=== PATIENT | female | born 1960 | race Hispanic/Latino ===

== ENCOUNTER 2017-09-20 05:58 | Observation (INO) | payer OTHER, MEDICARE ==
[2017-09-19 10:42] VITALS: BP 119/53
[2017-09-19 11:07] LABS: BASOPHILS % (AUTO) 0.6 % (0.0-5.0); EOSINOPHILS % (AUTO) 4.4 % (0.0-8.0); HEMATOCRIT 40.4 % (36-48); LYMPHOCYTES % (AUTO) 27.5 % (21.0-51.0); MEAN CORPUSCULAR HEMOGLOBIN 30.9 pg (27.0-33.0); MEAN CORPUSCULAR HGB CONC 33.7 g/dL (32.0-36.0); MEAN CORPUSCULAR VOLUME 91.8 fL (79-99); MONOCYTES % (AUTO) 7.7 % (3.0-13.0); NEUTROPHILS % (AUTO) 59.8 % (40.0-77.0); PLATELET COUNT (AUTO) 120 K/uL (130-400); RED CELL DISTRIBUTION WIDTH 13.6 % (11.0-15.5); WHITE BLOOD COUNT (AUTO) 7.3 K/uL (4.8-10.8)
[2017-09-19 11:30] LABS: CREATININE 0.6 mg/dL (0.5-1.5)
[2017-09-19 11:33] LABS: INR 0.95 (0.85-1.15); PARTIAL THROMBOPLASTIN TIME 30.5 SEC (26.3-35.5)
[2017-09-19 12:48] VITALS: BP 126/80
[~2017-09-20] VITALS: Ht 148.6 cm; Wt 80.6 kg
[2017-09-20] VITALS (12 sets, daily range): BP systolic 103–125; BP diastolic 56–72
[~2017-09-20 05:58] MED LIST: ACET1TAB25 PO; AMIT10TA6 PO; ATOR10TA69 PO; OXCA150T17 PO; metoprolol PO
[2017-09-20] MEDS ORDERED: SODIUM CHLORIDE 0.9% 1000ML 1,000 ML IV ONE (07:23)
[2017-09-20] MEDS ORDERED: MEPERIDINE-PF 25 MG/ML SYG ONE ×2 (11:07→11:32)
[2017-09-20] MEDS ORDERED: LIDOCAINE HCL 1% MDV 50ML VIAL ONE (11:07)
[2017-09-20] MEDS ORDERED: MIDAZOLAM HCL 1 MG/ML 2ML VIAL ONE ×2 (11:07→11:32)
[2017-09-20] MEDS ORDERED: CEFAZOLIN 1GM / D5W 50ML 150 ML ONE (11:07)
[2017-09-20] MEDS ORDERED: BUPIVACAINE/PF 0.25% 30ML VIAL IJ ONE (11:07)
[2017-09-20] MEDS ORDERED: ACETAMINOPHEN-CODEINE 300/30MG TAB PO PRN (12:30)
[2017-09-20] MEDS ORDERED: TEMAZEPAM 30 MG CAP PO PRN (12:30)
[2017-09-20] MEDS ORDERED: ONDANSETRON HCL 4 MG/2 ML VIAL IV PRN (12:30)
[2017-09-20] MEDS ORDERED: ACETAMINOPHEN 325 MG TAB PO PRN (12:30)
[2017-09-20] MEDS: ACETAMINOPHEN-CODEINE 300/30MG TAB PO PRN ×2 (13:41→20:21)
[2017-09-20] MEDS ORDERED: AMITRIPTYLINE HCL 10 MG TABLET PO SCH (21:00)
[2017-09-20] MEDS ORDERED: ATORVASTATIN CALCIUM 10 MG TABLET PO SCH (21:00)
[2017-09-21 03:46] VITALS: BP 106/64
[2017-09-21 07:00] VITALS: BP 107/49
[2017-09-21] MEDS ORDERED: METOPROLOL TARTRATE 25 MG TAB PO SCH (12:00)
[2017-09-21] MEDS ORDERED: OXCARBAZEPINE 300 MG TAB PO SCH (12:00)
== END 2017-09-21 11:32 | disposition home or self-care (01) ==
LOC: DAH 05:58 → 2DH 05:59 → DAH 05:59
PROVIDERS: ADMIT Internal Medicine Cardiovascular Disease; ATTEND Internal Medicine Cardiovascular Disease
DX: I42.0 Dilated cardiomyopathy (principal); Q24.9 Congenital malformation of heart, unspecified; R00.2 Palpitations; E78.5 Hyperlipidemia, unspecified; F32.9 Major depressive disorder, single episode, unspecified; F41.9 Anxiety disorder, unspecified; M19.90 Unspecified osteoarthritis, unspecified site; E66.9 Obesity, unspecified
CPT/HCPCS: 33249; 36415; 71010; 80048; 82948; 85025; 85610; 85730; 93005; A4606; C1721; C1895 ×2; G0378 ×30; J0690; J2175 ×2; J2250 ×2; J3490 ×2; J7030; 99152; 99153

== ENCOUNTER 2019-05-31 14:09 | Observation (INO) | payer OTHER, MEDICARE ==
[~2019-05-31] VITALS: Ht 149.9 cm; Wt 78.3 kg
[~2019-05-31 14:09] MED LIST changes: -ACET1TAB25 PO; -OXCA150T17 PO; +OXCA150T27 PO
[2019-05-31] MEDS ORDERED: ASPIRIN 325 MG TABLET ONE (14:34)
[2019-05-31] MEDS ORDERED: NITROGLYCERIN 1GM/1 INCH PACKET TD ONE (14:34)
[2019-05-31 14:37] LABS: BASOPHILS % (AUTO) 0.7 % (0.0-5.0); EOSINOPHILS % (AUTO) 2.5 % (0.0-8.0); HEMATOCRIT 43.2 % (36-48); LYMPHOCYTES % (AUTO) 33.5 % (21.0-51.0); MEAN CORPUSCULAR HEMOGLOBIN 30.9 pg (27.0-33.0); MEAN CORPUSCULAR VOLUME 90.7 fL (79-99); NEUTROPHILS % (AUTO) 51.3 % (40.0-77.0); NUCLEATED RED BLOOD CELLS 0.1 % (0.0-0.19); PLATELET COUNT (AUTO) 122 K/uL (130-400); RED BLOOD CELL COUNT(AUTO) 4.76 MIL/uL (4.00-5.50); RED CELL DISTRIBUTION WIDTH 14.1 % (11.0-15.5); WHITE BLOOD COUNT (AUTO) 8.4 K/uL (4.8-10.8)
[2019-05-31 14:41] LABS: APPEARANCE,URINE Clear (CLEAR); BILIRUBIN,URINE Negative (NEGATIVE); COLOR,URINE Yellow (YELLOW); GLUCOSE, URINE (UA) Negative (NEGATIVE); KETONES,URINE Negative (NEGATIVE); LEUKOCYTE ESTERASE ,URINE Negative (NEGATIVE); NITRATE,URINE Negative (NEGATIVE); OCCULT BLOOD,URINE Trace (NEGATIVE); PROTEIN,URINE Negative (NEGATIVE)
[2019-05-31 14:46] LABS: CREATININE 0.6 mg/dL (0.5-1.5); POTASSIUM 3.5 mmol/L (3.5-5.1)
[2019-05-31 14:49] LABS: INR 0.99 (0.85-1.15); PARTIAL THROMBOPLASTIN TIME 29.8 SEC (26.3-35.5); PROTHROMBIN TIME 10.4 SEC (9.6-11.6)
[2019-05-31 14:51] LABS: ALBUMIN 3.5 g/dL (3.5-5.0); BILIRUBIN,TOTAL 0.3 mg/dL (0.2-1.0); TOTAL PROTEIN, SERUM 7.9 g/dL (6.0-8.3)
[2019-05-31 15:05] LABS: BACTERIA,URINE Rare /HPF (None Seen); RBC,URINE 0-1 /HPF (0-1); SQUAMOUS EPITHELIAL CELL,UR Rare /HPF (0-2); WBC,URINE 0-1 /HPF (0-1)
[2019-05-31 15:55] LABS: B-TYPE NATRIURETIC PEPTIDE 80 pg/mL (0-100)
[2019-05-31] MEDS: SODIUM CHLORIDE 0.9% 1000ML 1,000 ML IV SCH (16:23)
[2019-05-31] MEDS ORDERED: HYDRALAZINE HCL 20 MG/ML VIAL IV PRN (16:30)
[2019-05-31] MEDS ORDERED: ACETAMINOPHEN-CODEINE 300/30MG TAB PO PRN (16:30)
[2019-05-31] MEDS ORDERED: SODIUM CHLORIDE 0.9% 1000ML 1,000 ML IV ONE (16:58)
[2019-05-31 17:28] LABS: HEMOGLOBIN A1C 5.8 % (4.0-6.0)
[2019-05-31] MEDS ORDERED: NITROGLYCERIN 0.4 MG SL TAB SL PRN (17:30)
[2019-05-31 17:31] LABS: THYROID STIMULATING HORMONE 3.21 uIU/mL (0.36-3.74)
[2019-05-31] MEDS ORDERED: IOHEXOL-350 75 ML VIAL IV ONE (19:40)
--- NOTE | 2019-05-31 20:55 | NUR ---
Received pt. from ER via stretcher,pt. is alert and oriented on room air.Pt. denies chestpain or any discomfort.She verbalized feeling much better.Pt. instructed to be NPO postmidnight for a possible Lexiscan.As per ER nurse Gladis ,Dr. Cao retail sales consultant was already notified regarding consult.Pt. with NS @100ml/hr infusing well to RAC g20.Pt. instructed to use call light for assistance .
[2019-05-31 20:56] VITALS: BP 139/68
[2019-05-31] MEDS ORDERED: MECL-129 PO (21:25)
[2019-05-31] MEDS ORDERED: LORA10CA9 PO (21:25)
[2019-05-31] MEDS ORDERED: TRAZ-185 PO (21:25)
[2019-05-31] MEDS: METOPROLOL TARTRATE 25 MG TAB PO SCH (21:35)
[2019-05-31] MEDS: FAMOTIDINE 20MG TAB 20 MG TAB PO SCH (21:35)
[2019-05-31 23:55] VITALS: BP 102/48
--- NOTE | 2019-06-01 | NUR ---
Pt.kept NPO at this time and demonstrated understanding.
[2019-06-01 00:01] LABS: CREATINE KINASE, TOTAL 35 U/L (21-232); MYOGLOBIN 19 ng/mL (10-92); TROPONIN I < 0.04 ng/mL (0.00-0.06)
[2019-06-01 03:54] VITALS: BP 98/52
[2019-06-01] MEDS: SODIUM CHLORIDE 0.9% 1000ML 1,000 ML IV SCH ×2 (05:14→12:23)
--- NOTE | 2019-06-01 06:57 | NUR ---
Bedside report given to incoming NOD using SBAR ,all questions answered.Pt. remained NPO , chestpain free and v/s stable.
[2019-06-01] MEDS: METOPROLOL TARTRATE 25 MG TAB PO SCH (07:05)
--- NOTE | 2019-06-01 07:10 | NUR ---
ASSESSMENT PT IS AAOX4 DENIES CP DENIES SOB DENIES NV NO COMPLAINTS, RESTING IN BED. CALL LIGHT WITHIN REACH. VISITOR IS AT BEDSIDE. NPO STATUS FOR OMAR TODAY, AWARE AND AGREES.
[2019-06-01 07:30] VITALS: BP 109/60
[2019-06-01] MEDS: FAMOTIDINE 20MG TAB 20 MG TAB PO SCH (07:52)
[2019-06-01] MEDS ORDERED: ASPIRIN 325 MG TABLET PO SCH (09:00)
[2019-06-01] MEDS ORDERED: ENOXAPARIN SODIUM 40 MG/0.4 ML SYRINGE SQ SCH (09:00)
--- NOTE | 2019-06-01 11:00 | NUR ---
CM NOTE PT in obs status- discharge to home after lexiscan if negative- detailed assessment deferred , no triggers to CM Addendum: 06/01/19 at 1934 by SAMANTHA HAGAN RN CM Amended: Links added.
[2019-06-01 11:45] VITALS: BP 127/65
[2019-06-01] MEDS: REGADENOSON 0.4 MG/5 ML PF SYG IVP SCH ×2 (12:00→13:09)
--- NOTE | 2019-06-01 12:00 | NUR ---
DR BARGER ROUNDED IF STRESS IS NEGATIVE, OK TO DC HOME
[2019-06-01 15:30] VITALS: BP 129/60
--- NOTE | 2019-06-01 16:15 | NUR ---
DR SCHROEDER CALLED, HE READ STRESS TEST STATES IT IS NORMAL
--- NOTE | 2019-06-01 16:20 | NUR ---
DC ORDERS RECEIVED FROM [facility]
--- NOTE | 2019-06-01 17:03 | NUR ---
DISCHARGE TO HOME PIV REMOVED CATH TIP INTACT, TELE PACK REMOVED. ALL QUESTIONS ANSWERED. AGREES TO TAKE MEDS ORDERED. AGREES TO FOLLOW UP HERE AT [facility] [place] PATIENT SCHEDULED FOR PROCEDURE WITH DR HAYNES. ALL BELONGINGS TAKEN. DOWN VIA WC TO VEHICLE WITH NURSE AIDE AND FAMILY.
[2019-06-04] MEDS ORDERED: METO25TA6 PO ×2 (10:27→10:29)
== END 2019-06-01 17:00 | disposition home or self-care (01) ==
LOC: EDH 14:09 → EDHIP 16:23 → 2DH 21:00
PROVIDERS: ADMIT Family Medicine; ATTEND Family Medicine
DX: I20.9 Angina pectoris, unspecified (principal); I11.0 Hypertensive heart disease with heart failure; I50.22 Chronic systolic (congestive) heart failure; R42 Dizziness and giddiness; R06.02 Shortness of breath; I25.5 Ischemic cardiomyopathy; E66.01 Morbid (severe) obesity due to excess calories; E78.5 Hyperlipidemia, unspecified; R79.1 Abnormal coagulation profile; M19.90 Unspecified osteoarthritis, unspecified site; F32.9 Major depressive disorder, single episode, unspecified; Z95.1 Presence of aortocoronary bypass graft; Z79.899 Other long term (current) drug therapy
CPT/HCPCS: 36415; 71045; 71275; 78452; 80053; 80061; 81001; 82550 ×2; 83036; 83874; 83880; 84443; 84484 ×3; 85025; 85378; 85610; 85730; 87804 ×2; 93005; 93017; 93970; 96360; 96361; 96372; 99291; A9500 ×2; G0378 ×22; J1650; J2785; J7030 ×2; Q9967; 96374

== ENCOUNTER 2019-06-06 05:56 | Observation (INO) | payer OTHER, MEDICARE ==
[2019-06-04 09:33] VITALS: BP 119/55
[2019-06-04 09:35] LABS: BASOPHILS % (AUTO) 0.6 % (0.0-5.0); EOSINOPHILS % (AUTO) 3.4 % (0.0-8.0); HEMATOCRIT 40.8 % (36-48); LYMPHOCYTES % (AUTO) 27.9 % (21.0-51.0); MEAN CORPUSCULAR HEMOGLOBIN 30.7 pg (27.0-33.0); MEAN CORPUSCULAR HGB CONC 33.7 g/dL (32.0-36.0); MEAN CORPUSCULAR VOLUME 91.2 fL (79-99); MONOCYTES % (AUTO) 10.5 % (3.0-13.0); NEUTROPHILS % (AUTO) 57.6 % (40.0-77.0); PLATELET COUNT (AUTO) 115 K/uL (130-400); RED BLOOD CELL COUNT(AUTO) 4.47 MIL/uL (4.00-5.50); WHITE BLOOD COUNT (AUTO) 5.8 K/uL (4.8-10.8)
[2019-06-04 09:57] LABS: CREATININE 0.5 mg/dL (0.5-1.5); POTASSIUM 4.1 mmol/L (3.5-5.1)
[2019-06-04 09:59] LABS: INR 1.02 (0.85-1.15); PARTIAL THROMBOPLASTIN TIME 31.3 SEC (26.3-35.5); PROTHROMBIN TIME 10.7 SEC (9.6-11.6)
--- NOTE | 2019-06-04 10:20 | NUR ---
SPOKE TO DR. LINDA ABOUT PT TAKING METOPROLOL BID UNTIL YESTERDAY, THEN HELD STARTING TODAY. PER MD AWARE,OK TO PROCEED.
--- NOTE | 2019-06-05 09:41 | NUR ---
NOTIFIED MD OF PLT OF 115 AND PLT MORPH LARGE PLTS PRESENT, NO NEW ORDERS, OKAY TO PROCEED.
[~2019-06-06] VITALS: Ht 147.3 cm; Wt 78.1 kg
[2019-06-06] VITALS (9 sets, daily range): BP systolic 104–135; BP diastolic 52–70
[~2019-06-06 05:56] MED LIST changes: -AMIT10TA6 PO; +LORA10CA9 PO; +MECL-129 PO; +METO25TA6 PO; +TRAZ-185 PO; -metoprolol PO
--- NOTE | 2019-06-06 06:00 | NUR ---
PT ARRIVED PATIENT ARRIVED ON UNIT ACCOMPANIED BY SON. PATIENT AAOX3, RESPIRATIONS UNLABORED, DENIES ANY PAIN AT THIS TIME. PROCEDURE AND MD VERIFIED WITH PATIENT, PROCEDURE EXPLAINED TO PATIENT. PATIENT VERBALIZED UNDERSTANDING. HOSPITAL ROUTINE EXPLAINED TO PATIENT. ALL QUESTIONS/CONCERNS ADDRESSED.
[2019-06-06] MEDS: SODIUM CHLORIDE 0.9% 1000ML 1,000 ML IV SCH (08:01)
--- NOTE | 2019-06-06 10:20 | NUR ---
PATIENT TRANSFERRED PATIENT TAKEN TO [facility] VIA BED BY RAOUL HARRIS. FAMILY WAITING IN ROOM.
[2019-06-06] MEDS ORDERED: LIDOCAINE HCL 1% 20 ML VIAL ONE (10:23)
[2019-06-06] MEDS ORDERED: ISOPROTERENOL HCL 0.2 MG/ML AMP/VIAL/BAG ONE ×2 (10:24→13:37)
[2019-06-06] MEDS ORDERED: MIDAZOLAM HCL 1 MG/ML 2ML VIAL ONE ×3 (11:02→13:07)
[2019-06-06] MEDS ORDERED: MEPERIDINE-PF 25 MG/ML SYG ONE ×3 (11:02→13:07)
[2019-06-06] MEDS ORDERED: ADENOSINE 90MG/30ML VIAL IV ONE (12:04)
[2019-06-06] MEDS ORDERED: HEPARIN SODIUM 1000UNIT/ML 10ML VIAL ONE (12:22)
[2019-06-06] MEDS ORDERED: ACETAMINOPHEN-CODEINE 300/30MG TAB PO PRN (20:00)
[2019-06-06] MEDS ORDERED: TRAZODONE HCL 50 MG TAB PO SCH (21:00)
[2019-06-06] MEDS ORDERED: ATORVASTATIN CALCIUM 10 MG TABLET PO SCH (21:00)
[2019-06-06] MEDS: OXCARBAZEPINE 300 MG TAB PO SCH (21:37)
[2019-06-06] MEDS: METOPROLOL TARTRATE 25 MG TAB PO SCH (21:37)
[2019-06-07 02:17] VITALS: BP 107/57
--- NOTE | 2019-06-07 04:00 | NUR ---
PT HAS BEEN STABLE. NO BLEEDING OR HEMATOMAS NOTED TO BILATERAL INCISION. PT IS S/P ABLATIONS. NO DISTRESS NOTED. GROIN INCISIONS ARE SOFT AND NON TENDER. PT ABLE TO AMBULATE. IV FLUIDS X1 BAG CONTINUES.
[2019-06-07 04:53] VITALS: BP 114/56
[2019-06-07 07:00] VITALS: BP 105/60
--- NOTE | 2019-06-07 08:45 | NUR ---
AM ASSESSMENT PT LAYING IN BED, HOB ELEVATED 30 DEGREES, RESTING. FAMILY @ BEDSIDE. A/O X 3. NO SOB. NO DISTRESS NOTED. DENIES CHEST PAIN OR DISCOMFORT. DENIES PALPITATIONS. TELE: V PACED 60s. DENIES N/V AND/OR DIARRHEA. S/P CARDIAC ABLATION 06/06/19. BILATERAL GROIN SOFT, NON-TENDER. DSG DRY & INTACT. NO BLEEDING, NO HEMATOMA NOTED. (+) BILATERAL STRONG PEDAL PULSES. BLE PINK & WARM TO TOUCH. UP AD IVANNA. INSTRUCTED TO CALL FOR ASSISTANCE. CALL SILVIA W/IN REACH.
[2019-06-07] MEDS: SODIUM CHLORIDE 0.9% 1000ML 1,000 ML IV SCH (08:47)
[2019-06-07] MEDS: METOPROLOL TARTRATE 25 MG TAB PO SCH (08:49)
[2019-06-07] MEDS: OXCARBAZEPINE 300 MG TAB PO SCH (08:49)
[2019-06-07] MEDS ORDERED: LORATADINE 10 MG TABLET PO SCH (09:00)
[2019-06-07 11:00] VITALS: BP 111/57
--- NOTE | 2019-06-07 13:40 | NUR ---
DISCHARGE VERBAL & WRITTEN DISCHARGE INSTRUCTIONS REVIEWED & GIVEN TO PT. QUESTIONS ENCOURAGED & CLARIFIED. PROPER CARE & ACTIVITY AFTER CARDIAC ABLATION REVIEWED. PT TO CONTINUE HOME MEDICATIONS. TELE TARA REMOVED. IV DISCONTINUED. PT & FAMILY TO GATHER PERSONAL BELONGINGS. WILL NOTIFY STAFF WHEN READY TO BE TAKEN TO PRIVATE VEHICLE.
--- NOTE | 2019-06-07 13:50 | NUR ---
DISCHARGE PT TAKEN TO PRIVATE VEHICLE VIA WC BY Presley REID PCP, ACCOMPANIED BY FAMILY. NO DISTRESS NOTED.
== END 2019-06-07 13:50 | disposition home or self-care (01) ==
LOC: DAH 05:56 → DAHIP 05:57 → DAH 05:57 → 2AH 15:32
PROVIDERS: ADMIT Internal Medicine; ATTEND Internal Medicine
DX: I47.1 Supraventricular tachycardia (principal); E66.9 Obesity, unspecified; E78.5 Hyperlipidemia, unspecified; I11.0 Hypertensive heart disease with heart failure; I50.22 Chronic systolic (congestive) heart failure; I42.0 Dilated cardiomyopathy; Z68.35 Body mass index [BMI] 35.0-35.9, adult; Z79.899 Other long term (current) drug therapy
CPT/HCPCS: 36415; 80048; 85025; 85610; 85730; 93005; 93613; 93621; 93623; 93653; A4649 ×2; C1730 ×4; C1732; C1894 ×5; G0378 ×23; J0153; J1644 ×2; J2175 ×3; J2250 ×3; J3490 ×2; J7030; 99156; 99157